=== PATIENT | female | born 1985 | race Hispanic/Latino ===

== ENCOUNTER 2018-02-08 17:06 | Emergency (ER) | payer BC ==
[2018-02-08 23:51] VITALS: BP 116/72; PULSE 80; O2SAT 97
--- NOTE | 2018-02-09 03:53 | OBHP ---
Datetime: 02/08/2018 18:39 IP Adm Impression: Term, intrauterine IP Admit Plan: Observation/Evaluation; Discharge home Admit Comment, IP Provider: 32 yo with IUP @ 37 +6 weeks based on LEON of 02/23/18 presented with complaint of decreased movement. She states that this started two days ago and states that she feels movement but it is decreased from normal. She denies contractions, vaginal bleeding and gush of fluid per the vagina. Patient follows at [facility] in [place] with Dr. Grullon. Denies chest pain, shortness of breath, cough, congestion, fevers, nausea, vomiting or dysuria. ROS: Systems reviewed and negative except for stated above in HPI. OBhx: 1 - 2015 - no complications PMH: Denies Family hx: Denies Social hx: Denies smoking history, illicit drug use or alcohol use. Allergies: N.K.D.A Medications: PNV daily. Labs: patient did not bring records from her OB. Physical exam: No acute distress. HEENT: Dry mucous membranes noted. Heart: S1 and S2 appreciated. Lungs: Clear air entry bilaterally. Abdomen: Gravid, soft, non-tender to palpation. FHT: Reactive; 150 baseline; moderate variability; Accelerations present. No decelerations. Catego ry 1 tracing. Assessment: 32 yo with IUP @ 37 +1 weeks based on LEON of 02/28/18 was sent from Ultrasound fo r non-reactive stress test today 02/08/18, NST currently reactive for at least 20 minutes. Plan: - NST reactive over 20 minutes- reactive- 150 baseline; moderate variability; Accelerations presen t. No decelerations. Category 1 tracing. - Continous monitoring for 40 more minutes. - Patient encouraged to increase PO intake of water. Case discussed with Dr. Coleman ---Kindra Estevez, PGY1 Display Specialist. Addendum: I saw and examined patient at presentation. Patient complaining of decreased movement [facility] in the day, patient reports good movement at this time. heart tracing category 1. No ev idence of labor at this time. Patient discharged home with labor precautions. [place] Pelvic Type - PN: Adequate Extremities - PN: Normal Abdomen - PN: Normal Back - PN: Normal Breast - PN: Not Done Lungs - PN: Normal Heart - PN: Normal Thyroid - PN: Not Done Neurologic - PN: Not Done HEENT - PN: Not Done General - PN: Normal FHR - Baseline A Provider: 150 EGA AdmitDate IP: 37.6 Vital Signs Provider: Reviewed IP Chief Complaint: Decreased movement NICHD Variability Prov Fetus A: Moderate 6-25bpm NICHD Accel Fetus A IP Provider: [id number] FHR Category Provider Fetus A: Category I NICHD Decel Fetus A IP Provider: None Dilatation, Provider: 1cm Genitourinary Exam: Normal DTRs - PN: Not Done
== END 2018-02-08 19:30 | disposition home or self-care (01) ==
LOC: H.EROB2 17:06 → H.L&D 17:40 → H.EROB2 19:30
DX: O36.8131 Decreased fetal movements, third trimester, fetus 1 (principal); Z3A.37 37 weeks gestation of pregnancy